=== PATIENT | male | born 1955 | race Caucasian/White ===

== ENCOUNTER 2023-02-25 16:07 | Emergency (ER) | payer MEDICARE, MEDICAID | END 2023-02-25 18:00 | disposition home or self-care (01) | LOC: JD.ED 16:07 | DX: S93.432A Sprain of tibiofibular ligament of left ankle, initial encounter (principal); F17.210 Nicotine dependence, cigarettes, uncomplicated; E11.9 Type 2 diabetes mellitus without complications; I10 Essential (primary) hypertension; W00.0XXA Fall on same level due to ice and snow, initial encounter | CPT/HCPCS: 73610-26-LT; 73610-LT; 99283 ==